=== PATIENT | male | born 1995 | race Caucasian/White ===

== ENCOUNTER 2016-08-28 07:30 | Emergency (ER) | payer SELFPAY ==
[~2016-08-28] VITALS: Ht 182.9 cm; Wt 87.1 kg
--- NOTE | 2016-08-28 07:48 | PHYS DOC ---
Adult General Chief Complaint Chief Complaint: CHEST PAIN-CARDIAC NATURE HPI HPI 21 yo male who presents with several hours of left lower rib margin pain with a questionable history of inflammation in his chest for which she was supposedly following with a primary care doctor several years ago. He denies taking any medications currently case he cannot afford them. He denies any recent drug or alcohol use. He states he was asleep prior to symptoms starting. Currently he states his pain is much improved believes improved prior to EMS arrival. EMS did administer 325 aspirin and nitroglycerin due to his questionable heart history. Patient is fully alert and oriented at this time and in no acute distress. He is saturating near 100% on room air. He currently rates his pain approximately a 2 out of 10 all localized to the left lower chest area. The pain is somewhat reproducible and he denies any recent trauma history. He does state he is more stressed than usual but denies any history of panic attacks. Review of Systems Review of Systems Constitutional: Denies fever or chills [] Eyes: Denies change in visual acuity, redness, or eye pain [] HENT: Denies nasal congestion or sore throat [] Respiratory: Denies cough or shortness of breath [] Cardiovascular: No additional information not addressed in HPI [] GI: Denies abdominal pain, nausea, vomiting, bloody stools or diarrhea [] : Denies dysuria or hematuria [] Musculoskeletal: Denies back pain or joint pain [] Integument: Denies rash or skin lesions [] Neurologic: Denies headache, focal weakness or sensory changes [] Endocrine: Denies polyuria or polydipsia [] Allergies Allergies Allergies Coded Allergies Type Severity Reaction Last Updated Verified No Known Drug Allergies 08/28/16 No Physical Exam Physical Exam Constitutional: Well developed, well nourished, no acute distress, non-toxic appearance. [] HENT: Normocephalic, atraumatic, bilateral external ears normal, oropharynx moist, no oral exudates, nose normal. [] Eyes: PERRLA, EOMI, conjunctiva normal, no discharge. [] Neck: Normal range of motion, no tenderness, supple, no stridor. [] Cardiovascular:Heart rate regular rhythm, no murmur [] Lungs & Thorax: Bilateral breath sounds clear to auscultation [] Abdomen: Bowel sounds normal, soft, no tenderness, no masses, no pulsatile masses. [] Skin: Warm, dry, no erythema, no rash. [] Back: No tenderness, no CVA tenderness. [] Extremities: No tenderness, no cyanosis, no clubbing, ROM intact, no edema. [] Neurologic: Alert and oriented X 3, normal motor function, normal sensory function, no focal deficits noted. [] Psychologic: Affect normal, judgement normal, mood normal. [] Current Patient Data Vital Signs Vital Signs Date Time Temp Pulse Resp B/P Pulse Ox O2 Delivery O2 Flow Rate FiO2 08/28/16 07:42 98.4 67 11 148/100 100 Room Air 98.4 Lab Values Laboratory Tests Test 08/28/16 07:40 White Blood Count 8.1x10^3/uL (4.0-11.0) Red Blood Count 5.67x10^6/uL (4.30-5.70) Hemoglobin 15.8g/dL (13.0-17.5) Hematocrit 47.3% (39.0-53.0) Mean Corpuscular Volume 83fL (79-100) Mean Corpuscular Hemoglobin 28pg (25-35) Mean Corpuscular Hemoglobin Concent 33g/dL (31-37) Red Cell Distribution Width 13.1% (11.5-14.5) Platelet Count 219x10^3/uL (140-400) Neutrophils (%) (Auto) 58% (31-73) Lymphocytes (%) (Auto) 33% (24-48) Monocytes (%) (Auto) 5% (0-9) Eosinophils (%) (Auto) 4% (0-3) H Basophils (%) (Auto) 1% (0-3) Neutrophils # (Auto) 4.7x10^3uL (1.8-7.7) Lymphocytes # (Auto) 2.6x10^3/uL (1.0-4.8) Monocytes # (Auto) 0.4x10^3/uL (0.0-1.1) Eosinophils # (Auto) 0.3x10^3/uL (0.0-0.7) Basophils # (Auto) 0.0x10^3/uL (0.0-0.2) D-Dimer (Chapis) 0.34ug/mlFEU (0.00-0.50) Sodium Level 142mmol/L (136-145) Potassium Level 3.6mmol/L (3.5-5.1) Chloride Level 103mmol/L (98-107) Carbon Dioxide Level 27mmol/L (21-32) Anion Gap 12 (6-14) Blood Urea Nitrogen 16mg/dL (8-26) Creatinine 1.1mg/dL (0.7-1.3) Estimated GFR (Cockcroft-Gault) 85.3 Glucose Level 107mg/dL (70-99) H Calcium Level 9.7mg/dL (8.5-10.1) Troponin I Quantitative < 0.017ng/mL (0.000-0.055) Laboratory Tests 08/28/16 07:40 Laboratory Tests 08/28/16 07:40 EKG EKG EKG as interpreted by me does show some T-wave inversion to lead V2 and lead 3. There are no other acute findings seen on this EKG. This is a nonischemic EKG. Intervals are normal. There is no ectopy. Radiology/Procedures Radiology/Procedures A portable view of his chest is negative for any acute abnormality. Course & Med Decision Making Course & Med Decision Making Pertinent Labs and Imaging studies reviewed. (See chart for details) This 21 oh male with questionable heart history will have laboratory workup and a chest x-ray. At this time his EKG does show T-wave inversions in V2 and lead 3 but no other obvious findings. Patient is not requesting anything for his pain and appears in no acute distress. If his laboratory workup is unrevealing, I will be discharging him with close follow-up with a primary care doctor as he is in need to continue following for his previous history. His laboratory workup is unremarkable. Upon my reassessment, patient is in no distress. I will be discharging him home with a course of Motrin for likely ongoing inflammation with strict instruction to return if he develops any worsening of his symptoms. Dragon Disclaimer Dragon Disclaimer This electronic medical record was generated, in whole or in part, using a voice recognition dictation system. Departure Departure Impression: Primary Impression: Chest wall pain Disposition: 01 HOME, SELF-CARE Admitting Physician: Other Condition: STABLE Patient Instructions: Chest Wall Pain, [id number] Additional Instructions: Please follow up with your primary doctor for your chest wall symptoms. Return to the ER if you develop any worsening of your symptoms. Scripts Ibuprofen 800 Mg Onhony425 Mg PO PRN Q6HRS PRN INFLAMMATION #20 TAB Prov:LESLI MAYO DO 08/28/16 LESLI MAYO DO Aug 28, 2016 07:48
[2016-08-28 08:01] LABS: BASO % 1 % (0-3); EOS % 4 % (0-3); HEMATOCRIT 47.3 % (39.0-53.0); HEMOGLOBIN 15.8 g/dL (13.0-17.5); LYMPH # 2.6 x10^3/uL (1.0-4.8); LYMPH % 33 % (24-48); MEAN CORPUSCULAR HEMOGLOBIN 28 pg (25-35); MEAN CORPUSCULAR HGB CONC 33 g/dL (31-37); MEAN CORPUSCULAR VOLUME 83 fL (79-100); MONO % 5 % (0-9); NEUT % 58 % (31-73); PLATELET COUNT 219 x10^3/uL (140-400); RED BLOOD COUNT 5.67 x10^6/uL (4.30-5.70); RED CELL DISTRIBUTION WIDTH 13.1 % (11.5-14.5); WHITE BLOOD COUNT 8.1 x10^3/uL (4.0-11.0)
--- NOTE | 2016-08-28 08:03 | RAD ---
Portable chest, 08/28/2016: History: Chest pain The heart size and pulmonary vascularity are normal. No pulmonary infiltrates are seen. There is no evidence of pleural fluid. IMPRESSION: No significant abnormality is detected.
[2016-08-28 08:06] VITALS: BP 150/98
[2016-08-28 08:09] LABS: CALCIUM 9.7 mg/dL (8.5-10.1); CREATININE 1.1 mg/dL (0.7-1.3); GFR 85.3; POTASSIUM 3.6 mmol/L (3.5-5.1)
--- NOTE | 2016-08-28 08:25 | EKG ---
[facility] [address] [place] [address] Test Date: 2016-08-28 Test Time: 07:36:13 Pat Name: SHAHRIAR CRISTOBAL Department: Room: Gender: F Intervention Nurse: : 1995 Requested By: LESLI MAYO Order Number: [id number] Reading MD: Measurements Intervals [place] Rate: 72 P: 40 [place]: 150 QRS: 3 QRSD: 104 T: 8 QT: 386 QTc: 424 Interpretive Statements SINUS RHYTHM RI6.01 Unconfirmed report No previous ECG available for comparison
[2016-08-28 08:33] LABS: BARBITURATES NEG (NEG); BENZODIAZEPINES NEG (NEG); CANNABINOIDS NEG (NEG); COCAINE NEG (NEG); ETHANOL, URINE NEG (NEG); METHADONE NEG (NEG); OPIATES NEG (NEG); PHENCYCLIDINE NEG (NEG)
[2016-08-28] MEDS ORDERED: IBUP-1060 PO (08:37)
== END 2016-08-28 08:40 | disposition home or self-care (01) ==
LOC: ER 07:30 → EDSEX 07:30 → ER 08:40
DX: R07.89 Other chest pain (principal)
CPT/HCPCS: 36415; 71010; 80048; 84484; 85027; 85379; 93005; 99285; G0481